=== PATIENT | female | born 1940 | race Caucasian/White ===

== ENCOUNTER 2019-07-28 12:05 | Inpatient (IN) | payer MEDICARE ==
[~2019-07-28] VITALS: Ht 157.5 cm; Wt 78.0 kg
[2019-07-28] MEDS ORDERED: ONDANSETRON HCL 4MG/2ML INJ IM ONE (17:45)
[2019-07-28] MEDS ORDERED: LEVETIRACETAM 500MG PREMIX 100 ML IV ONE (17:45)
[2019-07-28 17:57] LABS: BASOPHILS % 0.8 % (0.0-2.0); EOSINOPHILS % 0.2 % (0.0-5.0); HEMATOCRIT. 36.9 % (36.0-48.0); HEMOGLOBIN. 12.1 g/dL (12.0-16.0); LYMPHOCYTES % 10.1 % (20.0-50.0); MEAN CORPUSCULAR HEMOGLOBIN 27.8 pg (28.0-32.0); MEAN CORPUSCULAR VOLUME 85.2 fL (81.0-99.0); MEAN PLATELET VOLUME 11.1 fl (7.4-10.4); MONOCYTES % 7.5 % (2.0-8.0); NEUTROPHILS % 81.4 % (40.0-76.0); PLATELET 219 x1000/uL (130-400); RED BLOOD CELL COUNT 4.33 mill/uL (4.2-5.4); RED CELL DISTRIBUTION WIDTH 16.2 % (11.6-14.6)
[2019-07-28 18:03] LABS: CHLORIDE 104 mEq/L (98-107)
[2019-07-28 18:08] LABS: PROTHROMBIN TIME 10.5 sec (9.6-11.0)
[2019-07-28] MEDS: DEXT 5%/LACTATED RINGERS 1,000 ML IV SCH (18:45)
[2019-07-28] MEDS ORDERED: NICARDIPINE 100 MG in SODIUM CHLORIDE 0.9% 60 ML IV PRN (19:45)
[2019-07-28] MEDS: MORPHINE SULFATE 2 MG/ML CPJ (NOT FOR IM USE) IV PRN (20:20)
[2019-07-29] VITALS (61 sets, daily range): BP systolic 102–151; BP diastolic 42–85
[2019-07-29] MEDS: MORPHINE SULFATE 2 MG/ML CPJ (NOT FOR IM USE) IV PRN ×2 (07:02→18:04)
[2019-07-29] MEDS ORDERED: LEVETIRACETAM 500MG PREMIX 100 ML IV NR (09:00)
[2019-07-29] MEDS ORDERED: NICARDIPINE 100 MG in SODIUM CHLORIDE 0.9% 60 ML IV PRN ×2 (10:45→11:30)
[2019-07-29] MEDS: DEXT 5%/LACTATED RINGERS 1,000 ML IV SCH ×2 (11:25→16:42)
[2019-07-29] MEDS ORDERED: IPRATROPIUM/ALBUTEROL 0.5-3(2.5)MG/3ML NEB HHN PRN (18:30)
[2019-07-29] MEDS ORDERED: ONDANSETRON HCL 4MG/2ML INJ IV PRN (18:30)
[2019-07-29] MEDS ORDERED: ACETAMINOPHEN 650MG SUPP PR PRN (18:30)
[2019-07-29] MEDS ORDERED: DEXTROSE 50% WATER 50ML SYRINGE IV PRN (18:30)
[2019-07-29] MEDS: FAMOTIDINE 20MG/2ML VIAL IV SCH (18:56)
[2019-07-29] MEDS ORDERED: DEXT 5%/0.45% NACL 1000ML 1,000 ML IV SCH (19:00)
[2019-07-29 19:04] LABS: BG BASE EXCESS 0.1 mmol/L (-2.0-2.0); BG CARBOXYHEMOGLOBIN 0.4 % (0.5-1.5); BG DEOXYHEMOGLOBIN 6.8 % (0.0-5.0); BG FRACTION INSPIRED OXYGEN 21; BG HCO3 ACT 23.6 mmol/L (22.0-26.0); BG METHEMOGLOBIN 0.3 % (0.0-1.5); BG OXYGEN SATURATION 93.2 % (92.0-98.5); BG OXYHEMOGLOBIN 92.5 % (94.0-97.0); BG PCO2 34.6 mmHg (35.0-45.0); BG PH 7.452 (7.350-7.450); BG SAMPLE SITE RIGHT RADIAL; BG TOTAL HEMOGLOBIN 11.8 g/dL (12.0-18.0); BG VENT MODE ROOM AIR
[2019-07-29 19:52] LABS: BASOPHILS % 0.1 % (0.0-2.0); HEMATOCRIT. 33.1 % (36.0-48.0); HEMOGLOBIN. 10.9 g/dL (12.0-16.0); LYMPHOCYTES % 16.4 % (20.0-50.0); MEAN CORPUSCULAR HEMOGLOBIN 27.8 pg (28.0-32.0); MEAN PLATELET VOLUME 9.2 fl (7.4-10.4); MONOCYTES % 13.8 % (2.0-8.0); NEUTROPHILS % 69.7 % (40.0-76.0); PLATELET 211 x1000/uL (130-400); RED BLOOD CELL COUNT 3.93 mill/uL (4.2-5.4)
[2019-07-29 20:22] LABS: CHLORIDE 109 mEq/L (98-107)
[2019-07-29] MEDS: LEVETIRACETAM 500MG in SODIUM CHLORIDE 0.9% 100ML IV SCH (20:46)
[2019-07-29] MEDS: INSULIN LISPRO 100 UNITS/ML SUBCUT SCH (21:00)
[2019-07-29] MEDS ORDERED: LEVETIRACETAM 500MG PREMIX 100 ML IV SCH (21:00)
[2019-07-29] MEDS: BLOOD SUGAR DIAGNOSTIC STRIP TEST SCH (21:18)
[2019-07-29] MEDS: CEFTRIAXONE 1 G PREMIX 50 ML IV SCH (22:10)
[2019-07-29 23:02] LABS: CLARITY URINE CLOUDY (CLEAR); COLOR URINE YELLOW (YELLOW); KETONES URINE NEGATIVE (NEGATIVE); LEUKOCYTE ESTERASE URINE 2+ (NEGATIVE); NITRITE URINE NEGATIVE (NEGATIVE); OCCULT BLOOD URINE NEGATIVE (NEGATIVE); PROTEIN URINE TRACE (NEGATIVE); SPECIFIC GRAVITY URINE 1.016 (1.005-1.030); UROBILINOGEN URINE 0.2 E.U./dL (0.2-1.0)
[2019-07-30] VITALS (97 sets, daily range): BP systolic 64–154; BP diastolic 16–103
[2019-07-30 06:15] LABS: BASOPHILS % 0.4 % (0.0-2.0); HEMOGLOBIN. 10.9 g/dL (12.0-16.0); MEAN CORPUSCULAR HEMOGLOBIN 27.6 pg (28.0-32.0); MEAN CORPUSCULAR VOLUME 83.7 fL (81.0-99.0); MEAN PLATELET VOLUME 9.9 fl (7.4-10.4); MONOCYTES % 14.4 % (2.0-8.0); NEUTROPHILS % 67.2 % (40.0-76.0); PLATELET 193 x1000/uL (130-400); RED BLOOD CELL COUNT 3.94 mill/uL (4.2-5.4); RED CELL DISTRIBUTION WIDTH 16.2 % (11.6-14.6)
[2019-07-30 06:28] LABS: CHLORIDE 108 mEq/L (98-107)
[2019-07-30 06:40] LABS: LDL CHOLESTEROL 50 mg/dL (5-100)
[2019-07-30 06:43] LABS: HDL CHOLESTEROL 64 mg/dL (40-59); T4 FREE 1.13 ng/dL (0.76-1.46)
[2019-07-30] MEDS: BLOOD SUGAR DIAGNOSTIC STRIP TEST SCH ×4 (06:59→21:10)
[2019-07-30] MEDS: INSULIN LISPRO 100 UNITS/ML SUBCUT SCH ×4 (07:03→21:11)
[2019-07-30] MEDS: LEVETIRACETAM 500MG in SODIUM CHLORIDE 0.9% 100ML IV SCH ×2 (08:26→21:45)
[2019-07-30] MEDS: FAMOTIDINE 20MG/2ML VIAL IV SCH (08:26)
[2019-07-30] MEDS: AMLODIPINE 5MG TABLET PO SCH ×2 (10:53→21:10)
[2019-07-30] MEDS ORDERED: POTASSIUM CHLORIDE 20MEQ TABLET SR PO NR (11:00)
[2019-07-30] MEDS: DEXT 5%/LACTATED RINGERS 1,000 ML IV SCH (11:16)
[2019-07-30] MEDS: MORPHINE SULFATE 2 MG/ML CPJ (NOT FOR IM USE) IV PRN (12:19)
[2019-07-30] MEDS: CLONIDINE 0.1MG TABLET PO PRN (13:01)
[2019-07-30] MEDS: METOPROLOL TARTRATE 25MG TABLET PO SCH (21:10)
[2019-07-30] MEDS: CEFTRIAXONE 1 G PREMIX 50 ML IV SCH (21:10)
[2019-07-30] MEDS: ACETAMINOPHEN 325MG TABLET PO PRN (22:18)
[2019-07-31] VITALS (38 sets, daily range): BP systolic 115–156; BP diastolic 50–84
[2019-07-31 05:50] LABS: HEMATOCRIT. 32.7 % (36.0-48.0); MEAN CORPUSCULAR HEMOGLOBIN 28.3 pg (28.0-32.0); MEAN CORPUSCULAR VOLUME 84.1 fL (81.0-99.0); MEAN PLATELET VOLUME 9.9 fl (7.4-10.4); PLATELET 192 x1000/uL (130-400); RED BLOOD CELL COUNT 3.88 mill/uL (4.2-5.4); RED CELL DISTRIBUTION WIDTH 15.7 % (11.6-14.6)
[2019-07-31 05:58] LABS: CHLORIDE 105 mEq/L (98-107)
[2019-07-31] MEDS: BLOOD SUGAR DIAGNOSTIC STRIP TEST SCH ×4 (06:15→21:28)
[2019-07-31] MEDS: INSULIN LISPRO 100 UNITS/ML SUBCUT SCH ×4 (06:15→22:21)
[2019-07-31] MEDS: CLONIDINE 0.1MG TABLET PO PRN (06:20)
[2019-07-31] MEDS: FAMOTIDINE 20MG/2ML VIAL IV SCH (08:27)
[2019-07-31] MEDS: AMLODIPINE 5MG TABLET PO SCH ×2 (08:28→21:27)
[2019-07-31] MEDS: METOPROLOL TARTRATE 25MG TABLET PO SCH ×2 (08:28→21:27)
[2019-07-31] MEDS: LEVETIRACETAM 500MG in SODIUM CHLORIDE 0.9% 100ML IV SCH ×2 (08:29→22:41)
[2019-07-31 08:30] LABS: PLATELET ESTIMATE NORMAL
[2019-07-31] MEDS: ACETAMINOPHEN 325MG TABLET PO PRN ×2 (16:55→21:27)
[2019-07-31] MEDS: CEFTRIAXONE 1 G PREMIX 50 ML IV SCH (22:41)
[2019-08-01] VITALS: BP_SYST 143; BP_SYST 149; BP_DIAS 57; BP_DIAS 61
[2019-08-01] MEDS: CLONIDINE 0.1MG TABLET PO PRN ×2 (02:25→13:03)
[2019-08-01] MEDS: ACETAMINOPHEN 325MG TABLET PO PRN ×2 (03:29→11:05)
[2019-08-01 04:00] VITALS: BP 134/62
[2019-08-01] MEDS: INSULIN LISPRO 100 UNITS/ML SUBCUT SCH ×4 (06:48→21:00)
[2019-08-01] MEDS: BLOOD SUGAR DIAGNOSTIC STRIP TEST SCH ×4 (06:48→21:00)
[2019-08-01 07:32] LABS: HEMATOCRIT 35.2 % (36.0-48.0); HEMOGLOBIN 11.6 g/dL (12.0-16.0); MEAN CORPUSCULAR HEMOGLOBIN 27.6 pg (28.0-32.0); MEAN CORPUSCULAR VOLUME 83.5 fL (81.0-99.0); PLATELET 221 x1000/uL (130-400); RED BLOOD CELL COUNT 4.22 mill/uL (4.2-5.4); RED CELL DISTRIBUTION WIDTH 15.5 % (11.6-14.6)
[2019-08-01 07:38] LABS: CHLORIDE 102 mEq/L (98-107)
[2019-08-01 08:00] VITALS: BP 146/76
[2019-08-01] MEDS: AMLODIPINE 5MG TABLET PO SCH ×2 (09:07→20:09)
[2019-08-01] MEDS: FAMOTIDINE 20MG/2ML VIAL IV SCH (09:07)
[2019-08-01] MEDS: METOPROLOL TARTRATE 25MG TABLET PO SCH ×2 (09:07→20:09)
[2019-08-01] MEDS: LEVETIRACETAM 500MG in SODIUM CHLORIDE 0.9% 100ML IV SCH ×2 (10:02→21:30)
[2019-08-01 12:00] VITALS: BP 151/68
[2019-08-01] MEDS: HYDROCODONE/ACETAMINOPHEN 5/325MG TABLET PO PRN ×2 (13:32→21:22)
[2019-08-01 16:00] VITALS: BP 124/58
[2019-08-01] MEDS: CEFTRIAXONE 1 G PREMIX 50 ML IV SCH (19:59)
[2019-08-01 20:00] VITALS: BP_SYST 120; BP_SYST 166; BP_DIAS 69; BP_DIAS 75
[2019-08-02] VITALS (7 sets, daily range): BP systolic 142–167; BP diastolic 64–95
[2019-08-02] MEDS: BLOOD SUGAR DIAGNOSTIC STRIP TEST SCH ×4 (06:45→21:34)
[2019-08-02] MEDS: INSULIN LISPRO 100 UNITS/ML SUBCUT SCH ×4 (07:15→21:00)
[2019-08-02] MEDS: METOPROLOL TARTRATE 25MG TABLET PO SCH ×2 (09:42→21:22)
[2019-08-02] MEDS: LEVETIRACETAM 500MG in SODIUM CHLORIDE 0.9% 100ML IV SCH ×2 (09:42→21:22)
[2019-08-02] MEDS: FAMOTIDINE 20MG/2ML VIAL IV SCH (09:43)
[2019-08-02] MEDS: AMLODIPINE 5MG TABLET PO SCH ×2 (09:43→21:22)
[2019-08-02] MEDS: CEFTRIAXONE 1 G PREMIX 50 ML IV SCH (21:22)
[2019-08-02] MEDS: HYDROCODONE/ACETAMINOPHEN 5/325MG TABLET PO PRN (21:44)
[2019-08-03 04:00] VITALS: BP 154/67
[2019-08-03] MEDS: BLOOD SUGAR DIAGNOSTIC STRIP TEST SCH ×4 (06:11→21:21)
[2019-08-03] MEDS: INSULIN LISPRO 100 UNITS/ML SUBCUT SCH ×4 (06:12→21:33)
[2019-08-03 08:00] VITALS: BP 145/57
[2019-08-03] MEDS: LEVETIRACETAM 500MG in SODIUM CHLORIDE 0.9% 100ML IV SCH ×2 (09:00→22:36)
[2019-08-03] MEDS: FAMOTIDINE 20MG/2ML VIAL IV SCH (09:00)
[2019-08-03] MEDS: AMLODIPINE 5MG TABLET PO SCH ×2 (09:01→21:02)
[2019-08-03] MEDS: METOPROLOL TARTRATE 25MG TABLET PO SCH (09:01)
[2019-08-03 12:00] VITALS: BP 150/68
[2019-08-03 16:00] VITALS: BP_SYST 157; BP_SYST 159; BP_SYST 167; BP_DIAS 70; BP_DIAS 72; BP_DIAS 76
[2019-08-03] MEDS ORDERED: MORPHINE SULFATE 2 MG/ML CPJ (NOT FOR IM USE) IV PRN (17:15)
[2019-08-03] MEDS: HYDROCODONE/ACETAMINOPHEN 5/325MG TABLET PO PRN (18:09)
[2019-08-03 20:00] VITALS: BP 158/74
[2019-08-03] MEDS: CEFTRIAXONE 1 G PREMIX 50 ML IV SCH (21:00)
[2019-08-03] MEDS: METOPROLOL TARTRATE 50MG TABLET PO SCH (21:03)
[2019-08-03] MEDS: ACETAMINOPHEN 325MG TABLET PO PRN (21:28)
[2019-08-04] VITALS: BP_SYST 136; BP_SYST 139; BP_DIAS 66; BP_DIAS 69
[2019-08-04 04:00] VITALS: BP 156/72
[2019-08-04] MEDS: HYDRALAZINE 20MG/ML VIAL IV PRN ×2 (05:19→18:34)
[2019-08-04] MEDS: HYDROCODONE/ACETAMINOPHEN 5/325MG TABLET PO PRN ×2 (05:32→23:46)
[2019-08-04 06:14] LABS: BASOPHILS % 0.3 % (0.0-2.0); EOSINOPHILS % 0.7 % (0.0-5.0); HEMATOCRIT. 35.2 % (36.0-48.0); HEMOGLOBIN. 11.7 g/dL (12.0-16.0); LYMPHOCYTES % 28.8 % (20.0-50.0); MEAN CORPUSCULAR HEMOGLOBIN 27.5 pg (28.0-32.0); MEAN CORPUSCULAR VOLUME 82.3 fL (81.0-99.0); MEAN PLATELET VOLUME 8.9 fl (7.4-10.4); MONOCYTES % 13.8 % (2.0-8.0); NEUTROPHILS % 56.4 % (40.0-76.0); PLATELET 270 x1000/uL (130-400); RED BLOOD CELL COUNT 4.28 mill/uL (4.2-5.4)
[2019-08-04] MEDS: BLOOD SUGAR DIAGNOSTIC STRIP TEST SCH ×4 (06:20→21:50)
[2019-08-04 06:33] LABS: CHLORIDE 99 mEq/L (98-107)
[2019-08-04] MEDS: INSULIN LISPRO 100 UNITS/ML SUBCUT SCH ×4 (06:43→22:33)
[2019-08-04 08:40] VITALS: BP_SYST 125; BP_SYST 132; BP_SYST 145; BP_DIAS 48; BP_DIAS 60; BP_DIAS 61
[2019-08-04] MEDS: FAMOTIDINE 20MG/2ML VIAL IV SCH (08:43)
[2019-08-04] MEDS: METOPROLOL TARTRATE 50MG TABLET PO SCH ×2 (08:43→22:25)
[2019-08-04] MEDS: AMLODIPINE 5MG TABLET PO SCH ×2 (08:43→22:24)
[2019-08-04] MEDS: LEVETIRACETAM 500MG in SODIUM CHLORIDE 0.9% 100ML IV SCH (08:50)
[2019-08-04] MEDS ORDERED: POTASSIUM CHLORIDE 20MEQ TABLET SR PO NR (12:15)
[2019-08-04] MEDS: ACETAMINOPHEN 325MG TABLET PO PRN (15:02)
[2019-08-04 18:00] VITALS: BP_SYST 152; BP_SYST 162; BP_SYST 183; BP_DIAS 65; BP_DIAS 82; BP_DIAS 90
[2019-08-04] MEDS: LEVETIRACETAM 500MG PREMIX 100 ML IV SCH (18:33)
[2019-08-04 20:00] VITALS: BP 102/54
[2019-08-04] MEDS: CEFTRIAXONE 1 G PREMIX 50 ML IV SCH (22:23)
[2019-08-05] VITALS (8 sets, daily range): BP systolic 114–165; BP diastolic 54–82
[2019-08-05] MEDS: BLOOD SUGAR DIAGNOSTIC STRIP TEST SCH ×3 (06:49→16:54)
[2019-08-05] MEDS: INSULIN LISPRO 100 UNITS/ML SUBCUT SCH ×3 (06:52→17:01)
[2019-08-05] MEDS: FAMOTIDINE 20MG/2ML VIAL IV SCH (08:22)
[2019-08-05] MEDS: AMLODIPINE 5MG TABLET PO SCH (08:23)
[2019-08-05] MEDS: METOPROLOL TARTRATE 50MG TABLET PO SCH (08:23)
[2019-08-05] MEDS: LEVETIRACETAM 500MG PREMIX 100 ML IV SCH (08:26)
[2019-08-05] MEDS: HYDRALAZINE 20MG/ML VIAL IV PRN (17:02)
== END 2019-08-05 22:56 | DRG 83 ==
LOC: ER 12:16 → MICUNO 18:13 → ENRESERV 07-29 09:59 → 5WST 07-31 10:44
PROVIDERS: ADMIT Internal Medicine; ATTEND Internal Medicine
DX: S06.6X9A Traumatic subarachnoid hemorrhage with loss of consciousness of unspecified duration, initial encounter (principal); N39.0 Urinary tract infection, site not specified; W18.30XA Fall on same level, unspecified, initial encounter; S02.119A Unspecified fracture of occiput, initial encounter for closed fracture; E87.5 Hyperkalemia; I10 Essential (primary) hypertension; E03.9 Hypothyroidism, unspecified; M48.00 Spinal stenosis, site unspecified; M47.816 Spondylosis without myelopathy or radiculopathy, lumbar region; E87.6 Hypokalemia; M43.17 Spondylolisthesis, lumbosacral region; S06.2X9A Diffuse traumatic brain injury with loss of consciousness of unspecified duration, initial encounter; M43.16 Spondylolisthesis, lumbar region; E11.65 Type 2 diabetes mellitus with hyperglycemia; M85.80 Other specified disorders of bone density and structure, unspecified site; D72.829 Elevated white blood cell count, unspecified; Y93.89 Activity, other specified; Y92.89 Other specified places as the place of occurrence of the external cause; Y99.8 Other external cause status
CPT/HCPCS: 36415; 36600; 71045; 72131; 80048; 80061; 81003; 82375; 82805; 82962; 83036; 84145; 84439; 84443; 84481; 85027; 86850; 86900; 93005; 93306; 96365; 96372; 97116; 97162; 97166; 97530; 97535; 99285; J0360; J0696; J1815; J1953; J2270; J2405; J3490; J7040; J7050